=== PATIENT | male | born 1980 | race African-American/Black ===

== ENCOUNTER 2022-09-03 04:12 | Day surgery (SDC) | payer OTHER ==
[2022-08-28 18:03] VITALS: BMI 26.1
[2022-09-03 09:00] VITALS: RESP 18
[2022-09-03] MEDS ORDERED: MIDAZOLAM HCL 2 MG/2 ML SINGLE DOSE VIAL ONE (11:25)
[2022-09-03] MEDS ORDERED: FENTANYL CITRATE/PF 50 MCG/ML VIAL ONE ×2 (11:25→11:45)
[2022-09-03] MEDS ORDERED: ONDANSETRON 4 MG/2 ML VIAL ONE (11:25)
[2022-09-03] MEDS ORDERED: PROPOFOL 20 ML ONE (11:48)
[2022-09-03 13:07] VITALS: BP 143/100; PULSE 72; TEMP 98.4
== END 2022-09-03 12:50 | disposition home or self-care (01) ==
LOC: JASU-SURG 04:12
PROVIDERS: ATTEND Urology
PROC: 0TF3XZZ Fragmentation in Right Kidney Pelvis, External Approach (ICD-10-PCS; principal; 2022-09-03 10:30)
DX: N20.0 Calculus of kidney (principal)

== ENCOUNTER 2023-10-02 04:21 | Day surgery (SDC) | payer OTHER ==
[2023-09-25 16:02] VITALS: BMI 29.3
[2023-10-02] MEDS ORDERED: MIDAZOLAM HCL 2 MG/2 ML SINGLE DOSE VIAL ONE (07:36)
[2023-10-02 08:06] VITALS: TEMP 97.8
[2023-10-02 14:29] VITALS: BP 117/85; PULSE 77; RESP 18
== END 2023-10-02 09:15 | disposition home or self-care (01) ==
LOC: JASU-ENDO 04:21
PROVIDERS: ATTEND Internal Medicine Gastroenterology
PROC: 0DJD8ZZ Inspection of Lower Intestinal Tract, Via Natural or Artificial Opening Endoscopic (ICD-10-PCS; principal; 2023-10-02 08:00)
DX: K59.00 Constipation, unspecified (principal)